=== PATIENT | female | born 1970 | race Caucasian/White ===

== ENCOUNTER → 2021-06-27 09:12 | Outpatient (CLI) | payer OTHER, SELFPAY ==
--- NOTE | ~2021-06-27 | XR_ITS ---
EXAMINATION: XR hip LT min 2V INDICATION: Left side pain TECHNIQUE: Two views of the left hip are obtained. COMPARISON: None available FINDINGS: Bone alignment is normal. There is no fracture. Phleboliths are seen in the left pelvis. An IUD is noted. IMPRESSION: 1. No acute osseous abnormality. Reviewed, dictated and finalized at location A. NSTRUCTIVE DENTIST
--- NOTE | ~2021-06-27 | XR_ITS ---
EXAMINATION: XR lumbar spine min 4V DATE: 06/27/2021 09:34 INDICATION: Lumbar radiculopathy TECHNIQUE: Anteroposterior, lateral, and bilateral oblique views of the lumbar spine, and cone-down l ateral view of the lumbosacral junction were obtained. COMPARISON: None. FINDINGS: There is no fracture, dislocation, or subluxation. There is mild loss of intervertebral dis c space height at L3-4. The vertebral body heights are maintained. Small degenerative osteophytes pro ject from the anterior endplates of multiple vertebral bodies. There is mild facet osteoarthritis of the lower lumbar spine. The bowel gas pattern is normal. Surgical clips in the right upper quadrant a re likely from prior cholecystectomy. An IUD is noted. IMPRESSION: 1. Mild lumbar spondylosis without acute findings. Reviewed, dictated and finalized at location A. 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
== END ==
PROVIDERS: PCP Family Medicine; Visit Provider Physician Assistant
DX: M54.16 Radiculopathy, lumbar region (principal); M43.06 Spondylolysis, lumbar region
CPT/HCPCS: 72110; 73502

== ENCOUNTER → 2021-07-04 07:02 | Outpatient (CLI) | payer OTHER, SELFPAY ==
--- NOTE | ~2021-07-04 | MM_ITS ---
EXAMINATION: [place] [facility] [place] HISTORY: Screening mammogram TECHNIQUE: Craniocaudal and mediolateral oblique 3-D tomosynthesis images were obtained and synthetic 2-D images were generated. CAD analysis was submitted and interpreted. COMPARISON: 02/23/2019, 09/04/2015, 02/01/2014, 01/26/2014 BREAST PARENCHYMAL COMPOSITION: There are scattered areas of fibroglandular density. FINDINGS: There is no evidence of suspicious mass, calcification, or architectural distortion to sugg est malignancy in either breast. There has been no suspicious interval change. IMPRESSION: 1. No mammographic evidence of malignancy. 2. Recommend routine screening mammography in one year. BI-RADS Category 1: Negative Reviewed, dictated and finalized at location A. OOD MANAGER
== END ==
PROVIDERS: Visit Provider Nurse Practitioner
DX: Z12.31 Encounter for screening mammogram for malignant neoplasm of breast (principal)
CPT/HCPCS: 77063; 77067

== ENCOUNTER → 2022-10-14 08:18 | Outpatient (CLI) | payer OTHER, SELFPAY ==
--- NOTE | ~2022-10-14 | MR_ITS ---
EXAMINATION: MR brain/brain stem wo con DATE: 10/14/2022 09:09 INDICATION: Facial weakness. TECHNIQUE: Magnetic resonance imaging (MRI) of the brain and brainstem was performed without intraven ous contrast. COMPARISON: None. FINDINGS: There is no intracranial hemorrhage, acute infarction, or abnormal intracranial mass lesion . The ventricles are normal in size. The paranasal sinuses are clear. The orbits are normal. The mast oid air cells are normal. IMPRESSION: 1. Normal brain. Reviewed, dictated and finalized at location A. IMPRESSION: 1. Normal brain.
== END ==
PROVIDERS: PCP Family Medicine; Visit Provider Physician Assistant
DX: R29.810 Facial weakness (principal)
CPT/HCPCS: 70551

== ENCOUNTER → 2022-12-30 07:52 | Outpatient (CLI) | payer OTHER, SELFPAY ==
--- NOTE | ~2022-12-30 | MM_ITS ---
EXAMINATION: MM screening [facility] w macy HISTORY: Screening mammogram TECHNIQUE: Craniocaudal and mediolateral oblique 3-D tomosynthesis images were obtained and synthetic 2-D images were generated. CAD analysis was submitted and interpreted. COMPARISON: 07/04/2021, 02/23/2018, 09/04/2015 bilateral screening mammogram examinations BREAST PARENCHYMAL COMPOSITION: There are scattered areas of fibroglandular density. FINDINGS: There is no evidence of suspicious mass, calcification, or architectural distortion to sugg est malignancy in either breast. There has been no suspicious interval change. IMPRESSION: 1. No mammographic evidence of malignancy. 2. Recommend routine screening mammography in one year. BI-RADS Category 1: Negative Reviewed, dictated and finalized at location A.
== END ==
PROVIDERS: PCP Nurse Practitioner; Visit Provider Nurse Practitioner
DX: Z12.31 Encounter for screening mammogram for malignant neoplasm of breast (principal)
CPT/HCPCS: 77063; 77067

== ENCOUNTER 2023-01-08 16:13 | Outpatient (CLI) | payer OTHER, SELFPAY ==
--- NOTE | ~2023-01-08 | US_ITS ---
Procedure: Duplex Doppler examination of the bilateral carotids. Indication: Lower extremity paresthesias Technique: Real time, color-flow and pulse wave Doppler examination of the bilateral carotids was performed. Findings: Marroquin scale ultrasonography of the right neck demonstrated no significant plaque. There was demonstrat ion of normal color-flow and Doppler waveforms within the right common, internal and external carotid arteries. The peak systolic velocities in the right common, internal and external carotid arteries w ere demonstrated to be 89 cm/sec, 106 cm/sec and 112 cm/sec respectively. The right ICA/CCA ratio was 1.3.The proximal right internal carotid artery demonstrates 0% stenosis relative to the normal dista l artery lumen diameter. Marroquin scale sonography of the left neck demonstrated no significant plaque. There was demonstration of normal color-flow and wave forms within the left common, internal and external carotid arteries. The peak systolic velocities in the left common, internal and external carotid arteries were demonstrate d to be 77cm/sec, 99 cm/sec and 62 cm/sec respectively. The left ICA/CCA ratio was 1.6. The proximal left internal carotid artery demonstrates 0% stenosis relative to the normal distal artery lumen diam eter. There was antegrade flow demonstrated in the bilateral vertebral arteries. Impression: No hemodynamically significant stenosis of the bilateral internal carotid arteries. Antegrade flow in the bilateral vertebral arteries. Note: The methodology used is an indirect measurement validated against a direct method (such as the NASCET criteria) that compares diameters at the stenosis to the distal ICA. Reviewed, dictated and finalized at [facility]. Impression: No hemodynamically significant stenosis of the bilateral internal carotid arter ies. Antegrade flow in the bilateral vertebral arteries. Note: The methodology used is an indirect measurement validated against a direct meth od (such as the NASCET criteria) that compares diameters at the stenosis to the distal ICA.
== END 2023-01-08 16:14 ==
PROVIDERS: PCP Family Medicine; Visit Provider Physician Assistant
DX: R29.90 Unspecified symptoms and signs involving the nervous system (principal)
CPT/HCPCS: 93880

== ENCOUNTER 2023-09-05 08:29 | Outpatient (CLI) | payer OTHER, SELFPAY ==
--- NOTE | 2023-09-05 11:30 | NEURO_ITS ---
Impression: # Complains of left anterolateral thigh numbness. # Normal sensory and motor Nerve Conduction Study. # Normal needle/EMG exam. # Clinical correlation recommended. Nerve Conduction Studies Anti Sensory Summary Table Stim Site NR Peak (ms) P-T Amp (?V) Site1 Site2 Delta-P (ms) Dist (cm) Deejay (m/s) Left Saphenous Anti Sensory (Ant Med Mall) 14cm 3.3 24.6 14cm Ant Med Mall 3.3 0.0 Left Sup Fibular Anti Sensory (Ant Lat Mall) 14 cm 3.3 10.6 14 cm Ant Lat Mall 3.3 16.0 48 Left Sural Anti Sensory (Lat Mall) Calf 3.2 9.8 Calf Lat Mall 3.2 16.0 50 Motor Summary Table Stim Site NR Onset (ms) O-P Amp (mV) Site1 Site2 Delta-0 (ms) Dist (cm) Deejay (m/s) Left Peroneal Motor (Vastus Med) Ankle 3.8 1.4 Popit Ankle 8.6 44.0 51 Popit 12.4 1.6 Left Tibial Motor (Abd Mary Brev) Ankle 4.0 3.1 Knee Ankle 8.7 44.0 51 Knee 12.7 1.3 F Wave Studies NR F-Lat (ms) L-R F-Lat (ms) Left Peroneal (Mrkrs) (EDB) 52.03 Left Tibial (Mrkrs) (Abd Hallucis) 53.09 EMG Side Muscle Nerve Root Ins Act Fibs Amp Dur Recrt Comment Left AntTibialis Dp Br Fibular L4-5 Nml Nml Nml Nml Nml Left Gastroc Tibial S1-2 Nml Nml Nml Nml Nml Left Fibularis Long Sup Br Fibular L5-S1 Nml Nml Nml Nml Nml Left Flex Dig Long Tibial L5-S2 Nml Nml Nml Nml Nml Left Ext Dig Brev Dp Br Fibular L5, S1 Nml Nml Nml Nml Nml MTDD
== END 2023-09-05 08:30 | disposition home or self-care (01) ==
PROVIDERS: PCP Family Medicine; Visit Provider Physician Assistant
DX: R20.2 Paresthesia of skin (principal)
CPT/HCPCS: 95886; 95909

== ENCOUNTER 2023-09-25 07:54 | Outpatient (CLI) | payer OTHER, SELFPAY ==
--- NOTE | ~2023-09-25 | MR_ITS ---
EXAMINATION: MR lumbar spine wo con DATE: 09/25/2023 08:23 INDICATION: Neuralgia Sciatica of the left lower limb TECHNIQUE: Magnetic resonance imaging (MRI) of the lumbar spine was performed without intravenous con trast. Sequences included sagittal T2-weighted FSE, sagittal T2-weighted FS FSE, sagittal T1-weighted FSE, and axial T2-weighted FSE. COMPARISON: None FINDINGS: Alignment is normal. Vertebral body heights are normal. Normal marrow signal. Mild disc height loss at L2-L3, L3-L4 and L4-L5. The conus medullaris terminates at T12-L1. There is normal signal in the c audal spinal cord. Paravertebral soft tissues are unremarkable. The following disc levels are specifi alva discussed: T12-L1: The disc does not extend beyond the endplate margin. There is mild bilateral facet joint oste oarthritis. There is no neural foraminal stenosis. There is no central canal stenosis. L1-L2: The disc does not extend beyond the endplate margin. There is mild left and moderate right fac et joint osteoarthritis. There is no neural foraminal stenosis. There is no central canal stenosis. L2-L3: Disc is mildly bulging. There is mild to moderate left and moderate right facet joint osteoart hritis. There is mild bilateral neural foraminal stenosis. There is mild central canal stenosis. L3-L4: Disc is bulging. There is moderate bilateral facet joint osteoarthritis. There is mild left an d mild to moderate right neural foraminal stenosis. There is mild central canal stenosis. L4-L5: Disc is bulging. There is moderate bilateral facet joint osteoarthritis. There is moderate jim ateral, right greater than left neural foraminal stenosis. There is mild central canal stenosis. L5-S1: The disc does not extend beyond the endplate margin. There is moderate bilateral facet joint o steoarthritis. There is mild bilateral neural foraminal stenosis. There is no central canal stenosis. IMPRESSION: 1. Mild lumbar spondylosis. Reviewed, dictated and finalized at location L. IMPRESSION: 1. Mild lumbar spondylosis.
== END 2023-09-25 07:55 ==
LOC: MICIMG 07:56
PROVIDERS: PCP Psychiatry & Neurology Neurology; Visit Provider Psychiatry & Neurology Neurology
DX: M54.50 Low back pain, unspecified (principal); G57.12 Meralgia paresthetica, left lower limb; M43.06 Spondylolysis, lumbar region
CPT/HCPCS: 72148

== ENCOUNTER 2024-06-23 13:29 | Outpatient (CLI) | payer OTHER, SELFPAY ==
--- NOTE | ~2024-06-23 | MM_ITS ---
EXAMINATION: MM screening [facility] w macy HISTORY: Screening TECHNIQUE: Craniocaudal and mediolateral oblique 3-D tomosynthesis images were obtained and synthetic 2-D images were generated. CAD analysis was submitted and interpreted. COMPARISON: Comparison to multiple prior studies sequentially, with oldest reviewed study dated 02/23. BREAST PARENCHYMAL COMPOSITION: Not Dense: The breasts are almost entirely fatty. FINDINGS: There is no evidence of suspicious mass, calcification, or architectural distortion to sugg est malignancy in either breast. There has been no suspicious interval change. IMPRESSION: 1. No mammographic evidence of malignancy. 2. Recommend routine screening mammography in one year. BI-RADS Category 1: Negative Reviewed, dictated and finalized at location B. T YARNER
== END 2024-06-23 13:30 | disposition home or self-care (01) ==
LOC: MICIMG 13:30
PROVIDERS: PCP Family Medicine; Visit Provider Nurse Practitioner
DX: Z12.31 Encounter for screening mammogram for malignant neoplasm of breast (principal)
CPT/HCPCS: 77063; 77067

== ENCOUNTER 2024-08-11 07:00 | Outpatient (CLI) | payer OTHER, SELFPAY ==
--- NOTE | ~2024-08-11 | MR_ITS ---
MRI of the left knee Clinical history: Pain Technique: Coronal proton density and proton density-weighted images, sagittal proton-density and T2 fat-sat images, and axial proton-density fat-saturated images were acquired. Findings: Anterior and posterior cruciate ligaments are intact. Medial collateral ligament and the la teral collateral ligament complex are intact. There is probable chronic signal changes at the proxima l fibular collateral ligament. Popliteus tendon is intact. There is a radial tear at the posterior to the medial meniscus. No lateral meniscal tear seen. 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 There is diffuse mild to moderate chondral thinning along the medial femoral condyle. The re is mild chondral thinning and lateral compartment. Extensor mechanism is intact. No significant joint effusion or Edwards's cyst. Impression: Radial tear at the posterior root of the medial meniscus. Chondromalacia, as detailed above. Reviewed, dictated and finalized at [facility]. [employer] COUNSEL Impression: Radial tear at the posterior root of the medial meniscus. Chondromalacia, as detailed above.
== END 2024-08-11 07:01 | disposition home or self-care (01) ==
PROVIDERS: PCP Family Medicine; Visit Provider Nurse Practitioner Family
DX: S83.242A Other tear of medial meniscus, current injury, left knee, initial encounter (principal); M94.262 Chondromalacia, left knee; X58.XXXA Exposure to other specified factors, initial encounter
CPT/HCPCS: 73721

== ENCOUNTER 2024-08-23 07:53 | Outpatient (CLI) | payer OTHER, SELFPAY ==
--- OUTSIDE RECORDS SUMMARY | 2024-08-23 07:55 | XMS_ITS | Clinical Summary ---
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 Name Role Phone Unavailable Primary Care Provider Unavailabl e Social History Tobacco Use Types Packs/Day Years Used Date Smoking Tobacco: Never Assessed Comments Unknown Sex and Gender Information Value Date Recorded Sex Assigned at Not on file Legal Sex Female 5:56 PM CDT Gender Identity Not on file Sexual Orientation Not on file Plan of Treatment Health Maintenance Due Date Last Done Comments Cervical Cancer Screening Pa p Smear (Age 30 to 64) Every 3 Years 1972 Colorectal Cancer Screening Colonoscopy (10 Years) 1972 Annual Physical 10/09/1975 Hepatitis C 1990 DTaP, Tdap and Td Vaccines ( 1 - Tdap) 10/09/1991 Hepatitis B Vaccines (1 of 3 - 19+ 3-dose series) 10/09/1991 Cervical Cancer Screening Pa p with HPV Testing (Age 30 to 64) Every 5 Years 2002 Cervical Cancer Screening with HPV 2002 Mammogram Screening 2012 Zoster Vaccines (1 of 2) 2022 COVID-19 Vaccine ( - 2023-2 5 season) 2024 Influenza Adult (#1) 2024 Meningococcal B Vaccine Aged Out No l onger eligible based on patient's age to complete this topic Meningococcal Vaccine Aged Out No deepali tawana eligible based on patient's age to complete this topic Pneumococcal Vaccine: Pediat rics (0 to 5 Years) and At-Risk Patients (6 to 64 Years) Aged Out No longer eligible b ased on patient's age to complete this topic RSV Immunizations Under 20 Months Aged Out No longer eligible based on patient's age to complete this topic
--- OUTSIDE RECORDS SUMMARY | 2024-08-23 07:55 | XMS_ITS | Continuity of Care Document ---
Author Organization [facility] Address [address] [place] [address] [address] [place] [address] Phone Care Team Providers Care Director Of Property Management Name Role Phone Emi Crowder Unavailable Unavailable Procedures Procedure Date PT RE-EVALUATION THERAPEUTIC EXERCISES NEUROMUSCULAR RE-ED MANUAL THERAPY FUNC ACTIVITY ULTRASOUND THERAPY HOT/COLD PACK ELECTRIC STIMULATION UNATT THERAPEUTIC EXERCISES NEUROMUSCULAR RE-ED MANUAL THERAPY FUNC ACTIVITY ULTRASOUND THERAPY HOT/COLD PACK ELECTRIC STIMULATION UNATT THERAPEUTIC EXERCISES NEUROMUSCULAR RE-ED MANUAL THERAPY FUNC ACTIVITY ULTRASOUND THERAPY HOT/COLD PACK ELECTRIC STIMULATION UNATT THERAPEUTIC EXERCISES NEUROMUSCULAR RE-ED MANUAL THERAPY FUNC ACTIVITY ULTRASOUND THERAPY HOT/COLD PACK ELECTRIC STIMULATION UNATT THERAPEUTIC EXERCISES NEUROMUSCULAR RE-ED MANUAL THERAPY FUNC ACTIVITY ULTRASOUND THERAPY HOT/COLD PACK ELECTRIC STIMULATION UNATT THERAPEUTIC EXERCISES NEUROMUSCULAR RE-ED MANUAL THERAPY FUNC ACTIVITY ULTRASOUND THERAPY HOT/COLD PACK ELECTRIC STIMULATION UNATT THERAPEUTIC EXERCISES NEUROMUSCULAR RE-ED MANUAL THERAPY FUNC ACTIVITY ULTRASOUND THERAPY HOT/COLD PACK ELECTRIC STIMULATION UNATT THERAPEUTIC EXERCISES NEUROMUSCULAR RE-ED MANUAL THERAPY FUNC ACTIVITY ULTRASOUND THERAPY HOT/COLD PACK ELECTRIC STIMULATION UNATT PT EVALUATION THERAPEUTIC EXERCISES MANUAL THERAPY FUNC ACTIVITY ULTRASOUND THERAPY HOT/COLD PACK ELECTRIC STIMULATION UNATT Advance Directives Directive Yes / No Effective Date File Name No Information Encounters Encounter Description Practice Location Reason(s) For Visit Diagnoses Date Provider Providers Copied on Encounter [facility] [employer] [address], [place], [id number], tel:[phone] [facility] No Information Oct-0 2201 4 Tafyelitza Middleton. [address], [facility], . tel:[phone] Referring Provider: Sav[address], [place], [address]. tel:[phone] 6802 [facility] [address] [employer] [address], [place], [id number], tel:[phone] [facility] No Information Sep-2 3-201 4 Tafyelitza MartiEmi. [address] [facility], [facility] [address], [place], [facility], [place]. tel:[phone] Referring Provider: Savan[address], [place], [address]. tel:[phone] 3182 [facility] [address] [employer] [address], [place], [id number], tel:[phone] [facility] No Information Sep-1 8-201 4 Taff Emi. [address] [place] [address], [address], [place], [place], [facility], [place]. tel:[phone] Referring Provider: Savan[address], [place], [address]. tel:[phone] [address] [place] [address], [place], [id number], tel:[phone] [facility] No Information Sep-1 5-201 4 Taff Emi. [address] [place] [address], [address], [place], [place], [facility], [place]. tel: [phone] Referring Provider: Savan[address], [place], [address]. tel:[phone] [address] [place] [address], [id number], [place] tel:[phone] [facility] No Information Sep-1 1 4 Taff Emi. [address] [place] [address], [address], [address], [place]. tel:[phone] Referring Provider: Sav[address], [place], [address]. tel:[phone] [address] [place] [address], [place], [id number], [place] tel:[phone] [facility] No Information Sep-0 8201 4 Taff Emi. [address] [place] [address], [address], [place], [address], [place]. tel:[phone] Referring Provider: Savan[address], [place], [address]. tel:[phone] [address] [place], [place] [address], [place], [place], [id number], [place] tel:[phone] [facility] No Information Sep-0 2-201 4 Taff Emi. [address] [place] [address], [address], [place], [facility], [place]. tel:[phone] Referring Provider: [address], [place], [address]. tel:[phone] [address] [place] [address], [id number], tel:[phone] [facility] No Information Shanice Middleton. [address] [facility], [address], [place], [facility], [place]. tel:[phone] Referring Provider: Sav[address], [place], [address]. tel:[phone] 4476 [facility] [address] [place] [address], [id number], tel:[phone] [facility] Pain in joint involving shoulder region Shanice Middleton. [address] [facility], [address], [address], [place]. tel:[phone] Referring Provider: Sav[address], [place], [address]. tel:[phone] Family History Family Member Type Diagnosis Age At Onset No Information Payers Payer name Insurance type Covered republican ID Authorhalley harvey(s) [facility] Gomez MASON [id number] VL C Y2014 Social History Type Description Quantity Date Captured Comments Sex Female Smoking Status No Information Chief Complaint And Reason For Visit No Information Reason For Referral Reason For Referral No Information History Of Present Illness Encounter Date Complaint History Of Prese nt Illness No Information Functional Status Date Functional Assessmen t No Information Instructions Date Instruction Additional Infor mation No Information Assessments Type Assessment Date No Information Patient Care Teams Name Effective Dates (start - stop) Status Members No Information
--- NOTE | 2024-08-23 08:02 | ECG_ITS ---
Test Date: 2024-08-23 08:14:01 Measurements Intervals [place] Rate: 87 P: 61 MD: 173 QRS: 26 QRSD: 97 T: 34 QT: 359 QTc: 433 Interpretive Statements SINUS RHYTHM POSSIBLE LEFT ATRIAL ENLARGEMENT INFERIOR INFARCT, AGE INDETERMINATE BASELINE WANDER- V4-V6 ABNORMAL ECG No previous ECG available for comparison Electronically Signed On 08-23-2024 10:42:40 DISTRIBUTION TECH by Placido Fan D.O.
== END 2024-08-23 07:54 | disposition home or self-care (01) ==
PROVIDERS: PCP Family Medicine; Visit Provider Family Medicine
DX: I10 Essential (primary) hypertension (principal); R94.31 Abnormal electrocardiogram [ECG] [EKG]
CPT/HCPCS: 93005

== ENCOUNTER 2024-08-29 15:35 | Outpatient (CLI) | payer OTHER, SELFPAY ==
--- OUTSIDE RECORDS SUMMARY | 2024-08-29 15:38 | XMS_ITS | Continuity of Care Document ---
Author Organization [facility] Address [address] [place] [address] [address] [place] [address] Phone Care Team Providers Care Log Check Scaler Name Role Phone Emi Crowder Unavailable Unavailable [...] Diagnoses Date Provider Providers Copied on Encounter [facility] [employer] [address], [place], [id number], tel:[phone] [facility] No Information Oct-0 2201 4 Tafyelitza Middleton. [address], [facility], . tel:[phone] Referring Provider: Savanah [address]breu [address], [place], [address]. tel:[phone] [facility] [address] [employer] [address], [place], [id number], tel:[phone] [facility] No Information Sep-2 3-201 4 Tafyelitza MartiEmi. [address] [facility], [facility] [address], [place], [facility], [place]. tel:[phone] Referring Provider: Savanah [address]breu [address], [place], [address]. tel:[phone] [facility] [address] [employer] [address], [place], [id number], tel:[phone] [facility] No Information Sep-1 8-201 4 Taff Emi. [address] [place] [address], [address], [place], [place], [facility], [place]. tel:[phone] Referring Provider: Savanah [address]breu [address], [place], [address]. tel:[phone] [address] [place] [address], [place], [id number], tel:[phone] [facility] No Information Sep-1 5-201 4 Taff Emi. [address] [place] [address], [address], [place], [place], [facility], [place]. tel:[phone] Referring Provider: Savanah Abreu [address], [place], [address]. tel:[phone] [address] [place] [address], [id number], [place] tel:[phone] [facility] No Information Sep-1 1 4 Taff Emi. [address] [place] [address], [address], [place], [address], [place]. tel:[phone] Referring Provider: Savanah Abre[address], [place], [address]. tel:[phone] [address] [place] [address], [place], [id number], [place] tel:[phone] [facility] No Information Sep-0 8201 4 Taff Emi. [address] [place] [address], [address], [place], [address], [place]. tel: [phone] Referring Provider: Savanah Abreu [address], [place], [address]. tel:[phone] [address] [place], [place] [address], [place], [place], [id number], [place] tel:[phone] [facility] No Information Sep-0 2-201 4 Taff Emi. [address] [place] [address], [address], [place], [facility], [place]. tel:[phone] Referring Provider: Savanah Abre[address], [place], [address]. tel:[phone] [place] [address], [id number], tel:[phone] [facility] No Information Shanice Middleton. [address] [facility], [address], [place], [facility], [place]. tel:[phone] Referring Provider: Savanah [address]bre[address], [place], [address]. tel:[phone] [facility] [address] [place] [address], [id number], tel:[phone] [facility] Pain in joint involving shoulder region Shanice Middleton. [address] [facility], [address], [place], [address], [place]. tel:[phone] Referring Provider: Savan[address]bre[address], [place], [address]. tel:[phone] Family History Family Member Type Diagnosis Age At Onset No Information Payers Payer name Insurance type Covered libertarian ID Authorhalley harvey(s) [facility] Gomez MASON [id number] VL C Y2014 Social History Type Description [...]
--- OUTSIDE RECORDS SUMMARY | 2024-08-29 15:38 | XMS_ITS | Clinical Summary ---
Author Organization [facility] Address [address] [place] [address] Care Team Providers Care Communication Electronic Technician Name Role Phone Unavailable Primary Care Provider [...]
--- NOTE | 2024-08-29 16:00 | ECHO_ITS ---
Patient Info Name: Barbra Menjivar Age: 53 years : 1970 Gender: Female Ht: 66 in Wt: 240 lbs BSA: 2.30 m2 HR: 77 bpm BP: 161 / 106 mmHg Heart Rhythm: Sinus Rhythm Technical Quality: Good Exam Date: 08/29/2024 4:08 PM Exam Location: Echo Lab Patient Status: Outpatient Admit Date: 08/29/2024 Staff Ordering Physician: Alexia Lay MD Metal Spinner: Lady Malik RDCS Attending Provider: Alexia Lay MD Referring Physician: Alireza CONTE; Exam Type: CA echo doppler color flow Study Info Indications - Pre-op R94.31 - Abnormal electrocardiogram ECG EKG Complete two-dimensional, color flow and Doppler transthoracic echocardiogram is performed. Summary 1. Complete two-dimensional, color flow and Doppler transthoracic echocardiogram is performed. 2. Left ventricular chamber dimension is normal. 3. Left ventricular systolic function is normal, estimated at 60-65%. 4. The left ventricular diastolic function is normal. 5. E/e' 7 is not elevated. 6. Left atrial chamber dimension is mildly enlarged. 7. There is trace mitral valve regurgitation. 8. There is trace tricuspid valve regurgitation. 9. No pulmonary hypertension, estimated pulmonary arterial systolic pressure is 28 mmHg. Left Ventricle E/e' 7 is not elevated. Left ventricular chamber dimension is normal. Left ventricular systolic function is normal, estimated at 60-65%. The left ventricular diastolic function is normal. Right Ventricle Right ventricular systolic function is normal and with normal TAPSE 2.3 cm. Right ventricular chamber dimension is normal. Left Atria Left atrial chamber dimension is mildly enlarged. Right Atria Right atrial chamber dimension is normal. Aortic Valve The aortic valve is trileaflet. There is no aortic valve stenosis. There is no aortic valve regurgitation. Pulmonic Valve There is no pulmonic regurgitation. Mitral Valve There is no mitral valve stenosis. There is trace mitral valve regurgitation. Tricuspid Valve There is trace tricuspid valve regurgitation. No pulmonary hypertension, estimated pulmonary arterial systolic pressure is 28 mmHg. Pericardium/Pleural There is no pericardial effusion. Inferior Vena Cava Normal inferior vena cava with >50% collapse upon inspiration consistent with normal right atrial pressure, 5 mmHg. Aorta The aortic root size at the sinus of Valsalva is normal. Left Ventricular Outflow Tract Name Value Normal LVOT 2D LVOT Diameter 2.0 cm LVOT Doppler LVOT Peak Gradient 4 mmHg LVOT Mean Gradient 2 mmHg LVOT VTI 20 cm LVOT VTI/AV VTI Ratio 0.6 LVOT Stroke Volume 63 ml LVOT CO 5.1 l/min LVOT CI 2.2 l/min/m2 Pulmonic Valve Name Value Normal RVOT Doppler RVOT Peak Gradient 3 mmHg PV Doppler PV Peak Gradient 6 mmHg Mitral Valve Name Value Normal MV Doppler MV Decel [place] 781 cm/s2 MV PHT 30 ms MV Area (PHT) 7.2 cm2 4.0-5.0 MV Diastolic Function MV E Peak Velocity 82 cm/s MV A Peak Velocity 75 cm/s MV E/A 1.1 MV Decel Time 105 ms MV Annular TDI MV E/e' (Septal) 8.6 <=8.0 MV E/e' (Lateral) 7.0 <=8.0 MV E/e' (Average) 7.8 Tricuspid Valve Name Value Normal TV Regurgitation Doppler TR Peak Velocity 241 cm/s TR Peak Gradient 23 mmHg Estimated PAP/RSVP RA Pressure 5 mmHg <=5 PA Systolic Pressure 28 mmHg <36 RV Systolic Pressure 28 mmHg <36 Aorta Name Value Normal Ascending Aorta Ao Root Diameter (MM) 3.1 cm Ao Root Diam Index (MM) 1.4 cm/m2 Aortic Valve Name Value Normal AV Doppler AV Peak Velocity 154 cm/s AV Peak Gradient 10 mmHg AV Mean Gradient 5 mmHg AV VTI 32 cm AV Area (Cont Eq VTI) 2.0 cm2 >=3.0 AV Area (Cont Eq Deejay) 2.1 cm2 AV Regurgitation 2D LVOT Area 3.1 cm2 Ventricles Name Value Normal LV Dimensions 2D/MM IVS Diastolic Thickness (2D) 0.8 cm 0.6-1.0 LVID Diastole (2D) 5.0 cm 3.8-5.2 LVIW Diastolic Thickness (2D) 0.8 cm 0.6-0.9 LVID Systole (2D) 2.9 cm 2.2-3.5 LVOT Diameter 2.0 cm LV Mass (2D Cubed) 134.53 g 67.00-162.00 LV Mass Index (2D Cubed) 58 g/m2 43-95 Relative Wall Thickness (2D) 0.33 LV Fractional Shortening/Ejection Fraction 2D/MM LV Fractional Shortening (2D) 42 % 27-45 LV EF (2D Teichberlin) 73 % 54-74 LV Diastolic Volume (4C MOD) 73 ml LV EF (4C MOD) 61 % LV Diastolic Volume (2C MOD) 78 ml LV EF (2C MOD) 62 % LV Diastolic Volume (BP MOD) 75 ml 46-106 LV Diastolic Volume Index (BP MOD) 33 ml/m2 29-61 LV Systolic Volume (BP MOD) 29 ml 14-42 LV Systolic Volume Index (BP MOD) 13 ml/m2 8-24 LV EF (BP MOD) 61 % 54-74 LV Diastolic Length (4C) 8.4 cm LV Systolic Length (4C) 6.7 cm LV Stroke Volume (4C MOD) 44 ml Atria Name Value Normal LA Dimensions LA Dimension (MM) 4.0 cm 2.7-3.8 LA Volume (4C A-L) 74 ml LA Volume (BP A-L) 73 ml RA Dimensions RA Area (4C) 21.3 cm2 <=18.0 Report Signatures
== END 2024-08-29 15:36 | disposition home or self-care (01) ==
PROVIDERS: PCP Family Medicine; Visit Provider Family Medicine
DX: R94.31 Abnormal electrocardiogram [ECG] [EKG] (principal)
CPT/HCPCS: 93306

== ENCOUNTER 2024-09-02 00:34 | Day surgery (SDC) | payer OTHER, SELFPAY ==
[2024-08-25 14:36] VITALS: BMI 38.7
--- NOTE | 2024-08-25 15:00 | SUR.PREOP ---
Report to the Outpatient Waiting Room, entrance under the green pavilion located off [facility], at time 1130 on date 09/02/24. Planned Procedure Time: 1330.? Time changes happen often and if your time is changed the preop area will call you the afternoon before. - You and your visitor will be asked to self-screen and do not enter if you have any COVID symptoms. Please call surgeon if you need to reschedule. - A mask is optional within the hospital at this time. Patients may have clear liquids (water, carbonated beverages, clear teas, apple juice) until 3 hours prior to surgery with a maximum of 20 ounces. - No food from midnight until time of surgery and no smoking, or chewing tobacco (or any form of nicotine). No chewing gum, candy or mints. Take only the following medications with a SIP of water on the morning of surgery: METOPROLOL DO NOT STOP ANY OF YOUR OTHER PRESCRIPTION MEDICATIONS PRIOR TO SURGERY EXCEPT THE FOLLOWING Hold all vitamins and supplements for 3 days per anesthesiologist. Medications to discontinue per physician ALL VITAMINS AND SUPPLIMENTS FOR 3 DAYS PRIOR Date to take last dose 08/28/24 Please no make-up, nail sinhala, hairspray, perfume, deodorant, or body powder the day of surgery.? No jewelry (including any body piercings) or valuables the day of surgery, leave them at home.? Please take a shower or bath the night before, or the morning of, surgery with an antibacterial soap.? Wear comfortable, loose fitting clothing.? Children are encouraged to wear pajamas. - Jewelry must be removed prior to entering the operating room.? Rings and piercings that are not removed may be cut off. - The hospital will not accept responsibility for valuables.? - Please leave all valuables, including medications, at home the day of surgery. If you are going home after surgery, a licensed grab driver must drive you home.? - NO public transportation without another adult if you receive anesthesia. - We recommend that an adult stay with you for 24 hours following discharge. - We also recommend that you do not drive, make important decision, drink alcoholic beverages, or take any drugs that were not prescribed by your health care provider for at least 24 hours after your discharge time. Follow any additional instructions given to you from your surgeon. Telephone instructions given to and asked if any additional questions and then verbalized understanding. Patient advised to call surgeon office or pre surgery nurse liaison [phone] if any additional questions.
[2024-09-02] VITALS (10 sets, daily range): BP systolic 106–173; BP diastolic 48–92; PULSE 69–83; RESP 12–22; TEMP 36.1–36.9; O2SAT 97–100; BMI 39.2
--- OUTSIDE RECORDS SUMMARY | 2024-09-02 00:37 | XMS_ITS | Continuity of Care Document ---
Author Organization [facility] Address [address] [place] [address] [address] [place] [address] Phone Care Team Providers Care Brick Machine Operator Name Role Phone Emi Crowder Unavailable Unavailable [...] Diagnoses Date Provider Providers Copied on Encounter [facility] [employer] [address], [place], [id number], tel:[phone] [facility] No Information Oct-0 2201 4 Tafyelitza Middleton. [address], [facility], . tel:[phone] Referring Provider: Savanah Abreu Dr, [place], [address]. tel:[phone] [facility] [address] [employer] [address], [place], [id number], tel:[phone] [facility] No Information Sep-2 3-201 4 Tafyelitza MartiEmi. [address] [facility], [facility] [address], [place], [facility], [place]. tel:[phone] Referring Provider: Savanah Abreu [address], [place], [address]. tel:[phone] [facility] [address] [employer] [address], [place], [id number], tel:[phone] [facility] No Information Sep-1 8-201 4 Taff Emi. [address] [place] [address], [address], [place], [place], [facility], [place]. tel:[phone] Referring Provider: Savanah Abreu Dr, [place], [address]. tel:[phone] [address] [place] [address], [place], [id number], tel:[phone] [facility] No Information Sep-1 5-201 4 Taff Emi. [address] [place] [address], [address], [place], [place], [facility], [place]. tel:[phone] Referring Provider: Savanah Abreu Dr, [place], [address]. tel:[phone] [address] [place] [address], [id number], [place] tel:[phone] [facility] No Information Sep-1 1 4 Taff Emi. [address] [place] [address], [address], [address], [place]. tel:[phone] Referring Provider: Savanah [address]bre[address], [place], [address]. tel:[phone] [address] [place] [address], [place], [id number], [place] tel:[phone] [facility] No Information Sep-0 8201 4 Taff Emi. [address] [place] [address], [address], [place], [address], [place]. tel:[phone] Referring Provider: Savanah Abreu [address], [place], [address]. tel:[phone] [address] [place], [place] [address], [place], [place], [id number], [place] tel:[phone] [facility] No Information Sep-0 2-201 4 Taff Emi. [address] [place] [address], [address], [place], [facility], [place]. tel:[phone] Referring Provider: Savanah Abre[address], [place], [address]. tel:[phone] [place] [address], [id number], tel:[phone] [facility] No Information Shanice Middleton. [address] [facility], [address], [place], [facility], [place]. tel:[phone] Referring Provider: Savanah Abre[address], [place], [address]. tel:[phone] [facility] [address] [place] [address], [id number], tel:[phone] [facility] Pain in joint involving shoulder region Shanice Middleton. [address] [facility], [address], [address], [place]. tel:[phone] Referring Provider: Savanah Abre[address], [place], [address]. tel:[phone] Family History Family Member Type Diagnosis Age At Onset No Information Payers Payer name Insurance type Covered republican ID Authorhalley harvey(s) [facility] Gomez MASON [id number] VL C Y2014 Social History Type Description [...]
--- OUTSIDE RECORDS SUMMARY | 2024-09-02 00:37 | XMS_ITS | Clinical Summary ---
Author Organization [facility] Address [address] [place] [address] Care Team Providers Care Timber Mill Worker Name Role Phone Unavailable Primary Care Provider [...]
--- NOTE | 2024-09-02 07:22 | WPDHPUPDATE1 ---
History and Physical Update Update Date/Time: 09/02/24 07:22 History and Physical has been reviewed, including an updated exam of the patient. There are NO changes in the patient's condition. Risks, benefits, and alternatives have been discussed and questions answered. Patient agrees to proceed with procedure.
[2024-09-02] MEDS: LACTATED RINGERS 1,000 ML 30 ML IV CONT ×2 (11:55→16:20)
[2024-09-02] MEDS: CELECOXIB 200 MG CAPSULE PO (11:57)
[2024-09-02] MEDS: ACETAMINOPHEN 500 MG TABLET 1000 MG PO (11:57)
--- NOTE | 2024-09-02 14:03 | P.PNAN_ITS ---
Anes - Initial Pre Proc Eval Procedure: Operation Date: 09/02/24 13:30 Proposed Procedures p Left Knee Arthroscopy - Mitchell Oconnor MD Date/Time: 09/02/24 14:03 Surgeon: Mitchell Oconnor MD Pre Op Diagnosis: left knee meniscal tear Patient Data Age: 53 Gender: F Height: 1.68 m Weight: 110.1 kg Last Vital Signs Temp 97.7 F 09/02/24 11:30 Pulse 83 09/02/24 11:30 Resp 18 09/02/24 11:30 BP 146/88 H 09/02/24 11:30 Pulse Ox 97 09/02/24 11:30 O2 Del Method Room Air 09/02/24 11:30 Allergies Allergy/AdvReac Type Severity Reaction Status Date / Time Penicillins Allergy Unknown Rash Verified 09/02/24 12:07 Sulfa (Sulfonamide Allergy Unknown Rash Verified 09/02/24 12:07 Antibiotics) Home Medications ?Medication ?Instructions ?Recorded ?Confirmed ?Type coenzyme Q10 200 mg/gram oral 200 mg PO DAILY 04/24/22 09/02/24 History powder (H2Q CoQ10) turmeric root extract 500 mg 500 mg PO DAILY 04/24/22 09/02/24 History capsule cholecalciferol (vitamin D3) 125 250 mcg PO DAILY 10/04/22 09/02/24 History mcg (5,000 unit) capsule pantoprazole 40 mg tablet,delayed 40 mg PO QAM #90 tabs 11/19/23 09/02/24 Rx release atorvastatin 10 mg tablet 10 mg PO QHS #90 tabs 02/04/24 09/02/24 Rx metoprolol succinate 50 mg See Rx Instructions .Route 05/08/24 09/02/24 Rx tablet,extended release 24 hr .COMPLEX #90 tabs doxycycline hyclate 20 mg tablet 20 mg PO Q24H ACNE 08/25/24 08/26/24 History omega 8-ztg-dvu-fish oil 1,000 mg 1 cap PO DAILY 08/25/24 09/02/24 History (120 mg-180 mg) capsule (Fish Oil) thiamine HCl (vitamin B1) 50 mg 50 mg PO DAILY 08/25/24 09/02/24 History tablet (Vitamin B-1) chlorhexidine gluconate 4 % 1 applic topical ONCE #237 mL 08/26/24 Rx topical liquid (Hibiclens) semaglutide (weight loss) 0.25 0.25 mg (0.5 mL) subcut WEEKLY #2 09/01/24 Rx mg/0.5 mL subcutaneous pen mL injector (Wegovy) Patient hx anesthesia problems: none Family hx anesthesia problems: none Results Review: All pre-operative results and documents have been reviewed as part of the pre- operative evaluation. [facility] Past Medical History Medical History Degenerative joint disease of knee Medial meniscus tear Left knee injury Left knee pain Lower back pain Meralgia paresthetica of left side Mixed hyperlipidemia GERD (gastroesophageal reflux disease) HTN (hypertension), benign Surgical History Surgical History History of Hx of cholecystectomy H/O breast biopsy Family History Family History Father Diabetes mellitus Social History Social History Smoking status: Never smoker Second hand tobacco smoke exposure: No Alcohol intake: never Substance use: never Substance use type: does not use Do You Feel Safe in your Home?: Yes Lack of Transportation: No Lack of Food: Never True Current Housing: I Have Housing Concerned About Future Housing: No Difficulty Paying Gas/Electric Bills: No Difficulty Paying for Meds: No Currently Unemployed: No Education: Bachelor's Degree Difficulty w/ Childcare or Family Care: No Living arrangements: with family Occupation/Education: occupation Gender identity (if verbalized by the patient): Female Sexual Orientation (if Verbalized by the Patient): Straight or Heterosexual Spiritual care concerns: No Agree to blood products: Yes Anes - Eval Final PreProcedure Day of Procedure 09/02/24 14:03 Patient weight: obese Lungs: normal air movement Airway: Mallampati scale class II Neurological: alert and oriented Last oral intake: >/= 8 hours ASA classification: III Emergent: no Anesthetic plan: proceed Anesthesia type and monitoring: general LMA and standard monitoring Results Review: All pre-operative results and documents have been reviewed as part of the pre- operative evaluation. Hyperlipidemia, HTN (b maame taken this am), pre DM not on meds, BMI 39. Pt had ECHO 08/29/24 w nml LVEF, no , no pulmon HTN. Informed Consent: The patient's anesthetic plan and its attendant risks and benefits were discussed with the patient/family/POA. Questions were solicited and answers provided to the satisfaction of the patient/family/POA.
[2024-09-02] MEDS: ceFAZolin 2 GM/D5W 50 ML 2 GM/50 ML BAG IVPB (14:46)
[2024-09-02] MEDS: BUPivacaine HCL 0.5% 10 ML AMP 30 ML INFILTRATE (15:19)
--- NOTE | 2024-09-02 16:37 | P.OP_ITS ---
Procedure Note - Detailed Date of Procedure 09/02/24 Pre-op Diagnosis left knee meniscal tear Post-op Diagnosis Same (LEFT MEDIAL MENISCUS TEAR) Procedure Performed LEFT KNEE SCOPE Surgeon Mitchell Oconnor MD Anesthesia General Description of Procedure PATIENT WAS TAKEN TO THE OR. THE LEFT LEG WAS PREPPED AND DRAPED STERILE. TROCARS WERE PLACED IN THE USUAL FASHION. CAMERA WAS INTRODUCED. THERE WAS MINIMAL CHONDROMALACIA TO THE PATELLA FEMORAL JOINT. THERE WAS A LOT OF SYNOVITIS IN ALL COMPARTMENTS. THE MEDIAL COMPARTMENT SHOWED MILD CHONDROMALACIA TO THE MEDIAL FEMORAL CONDYLE. A SHAVER WAS USED TO PREFORM A CHONDROPLASTY. THERE WAS A SMALL RADIAL TEAR AT THE MENISCAL ROOT. THE TEAR WAS FULL THICKN ESS. THE TEAR WAS RESECTED WITH A BITER AND A SHAVER DOWN TO A SMOOTH BASE. ABOUT 10% OF THE MENISCUS WAS REMOVED. THE ACL WAS INTACT. THE LATERAL MENISCUS WAS NOT TORN. THE LAT COMPARTMENT HAD MINIMAL CHONDROMALACIA AT THE LATERAL PLATEAU. CHONDROPLASTY WAS PREFORMED. A SYNOVECTOMY WAS PREFORMED WELL. THE PATELLO FEMORAL JOINT UNDERWENT MINIMAL CHONDROPLASTY. SYNOVECTOMY WAS PREFORMED IN THE SUPERIOR MEDIAL COMPARTMENT. THE WOUNDS WERE APPROXIMATED WITH 4.0 NYLON. STERILE DRESSING WAS APPLIED. PATIENT WAS EXTUBATED. Estimated Blood Loss 5 Complications No immediate complications Condition Stable Disposition PACU
[2024-09-02] MEDS: fentaNYL CITRATE INJ (*CRX) 100 MCG/2 ML VIAL 25 MCG IV PUSH ×3 (16:43→17:12)
[2024-09-02] MEDS: oxyCODONE HCL (*CRX) 5 MG TAB IR PO (17:45)
== END 2024-09-02 18:38 | disposition home or self-care (01) ==
PROVIDERS: PCP Family Medicine; Visit Provider Orthopaedic Surgery
PROC: (CPT 29870; principal; 2024-09-02 13:30)
DX: S83.232A Complex tear of medial meniscus, current injury, left knee, initial encounter (principal); M94.262 Chondromalacia, left knee; M65.862 Other synovitis and tenosynovitis, left lower leg; G89.29 Other chronic pain; E78.2 Mixed hyperlipidemia; K21.9 Gastro-esophageal reflux disease without esophagitis; I10 Essential (primary) hypertension; M17.11 Unilateral primary osteoarthritis, right knee; G57.12 Meralgia paresthetica, left lower limb; E66.9 Obesity, unspecified; Z68.39 Body mass index [BMI] 39.0-39.9, adult; Z79.85 Long-term (current) use of injectable non-insulin antidiabetic drugs; Z98.890 Other specified postprocedural states; Z90.49 Acquired absence of other specified parts of digestive tract; X58.XXXA Exposure to other specified factors, initial encounter
CPT/HCPCS: 29881; 29876; A9270; J0690; J1100; J2003; J2250; J2704; J3010; J7120

== ENCOUNTER 2024-09-11 02:34 | Emergency (ER) | payer OTHER, SELFPAY ==
[2024-09-11] VITALS (19 sets, daily range): BP systolic 126–176; BP diastolic 42–101; PULSE 95–107; RESP 14–23; TEMP 36.9–37.2; O2SAT 96–100
--- OUTSIDE RECORDS SUMMARY | 2024-09-11 02:36 | XMS_ITS | Clinical Summary ---
Author Organization [facility] Address [address] [place] [address] Care Team Providers Care Door Manager Name Role Phone Unavailable Primary Care Provider [...]
--- OUTSIDE RECORDS SUMMARY | 2024-09-11 02:36 | XMS_ITS | Continuity of Care Document ---
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 [address], [facility], . tel:[phone] Referring Provider: Savanah [address]breu [address], [place], [address]. tel:[phone] [facility] [address] [employer] [address], [place], [id number], tel:[phone] [facility] No Information Sep-2 3-201 4 Tafyelitza MartiEmi. [address] [facility], [facility] [address], [place], [facility], [place]. tel:[phone] Referring Provider: Savanah [address]bre[address], [place], [address]. tel:[phone] [facility] [address] [employer] [address], [place], [id number], tel:[phone] [facility] No Information Sep-1 8-201 4 Taff Emi. [address] [place] [address], [address], [place], [facility], [place]. tel:[phone] Referring Provider: Savanah [address]breu [address], [place], [address]. tel:[phone] [address] [place] [address], [place], [id number], tel:[phone] [facility] No Information Sep-1 5-201 4 Taff Emi. [address] [place] [address], [address], [place], [facility], [place]. tel:[phone] Referring Provider: Savanah [address]breu [address], [place], [address]. tel:[phone] [address] [place] [address], [id number], [place] tel:[phone] [facility] No Information Sep-1 1 4 Taff Emi. [address] [place] [address], [address], [place], [address], [place]. tel:[phone] Referring Provider: Savanah Abreu [address], [place], [address]. tel:[phone] [address] [place] [address], [place], [id number], [place] tel:[phone] [facility] No Information Sep-0 8201 4 Taff Emi. [address] [place] [address], [address], [place], [address], [place]. tel:[phone] Referring Provider: Savanah Abreu [address], [place], [address]. tel:[phone] [address] [place], [place] [address], [place], [place], [id number], [place] tel:[phone] [facility] No Information Sep-0 2-201 4 Taff Emi. [address] [place] [address], [address], [place], [facility], [place]. tel:[phone] Referring Provider: Savanah Abreu Dr, [place], [address]. tel:[phone] [place] [address], [id number], tel:[phone] [facility] No Information Shanice Middleton. [address] [facility], [address], [place], [facility], [place]. tel:[phone] Referring Provider: Savanah [address]bre[address], [place], [address]. tel:[phone] [facility] [address] [place] [address], [id number], tel:[phone] [facility] Pain in joint involving shoulder region Shanice Middleton. [address] [facility], [address], [place], [address], [place]. tel:[phone] Referring Provider: Savanah Abreu [address], [place], [address]. tel:[phone] Family History Family Member Type Diagnosis Age At Onset No Information Payers Payer name Insurance type Covered libertarian ID Authorhalley harvey(s) [facility] Gomez MASON [id number] VL C [id number] Social History Type Description [...]
[2024-09-11] MEDS: SODIUM CHLORIDE 0.9% IV 1,000 ML 999 ML IV CONT ×2 (07:38→09:02)
[2024-09-11] MEDS: FAMOTIDINE 20 MG/2 ML VIAL IV PUSH (07:39)
[2024-09-11 07:51] LABS: Basophils Absolute Auto 0.1 K/mm3 (0.0-0.1); Basophils Percent Auto 0.4 % (0.2-1.2); Eosinophils Percent Auto 0.2 % (0-4.4); Hematocrit 40.1 % (37.0-47.0); Hemoglobin 13.3 g/dL (12.0-15.0); Immature Granulocyte Absolute 0.16 K/mm3 (0.00-0.031); Lymphocytes Percent Auto 9.1 % (18.3-44.2); Mean Corpuscular HGB Conc 33.2 g/dl (32-36); Mean Corpuscular Hemoglobin 29.1 pg (26-34); Mean Corpuscular Volume 87.7 fl (80-100); Mean Platelet Volume 9.6 fl (7.4-10.4); Monocytes Absolute Auto 0.9 K/mm3 (0.1-0.6); Monocytes Percent Auto 5.8 % (2.6-8.5); Neutrophils Absolute Auto 12.9 K/mm3 (1.3-6.7); Neutrophils Percent Auto 83.5 % (45.5-73.1); Platelet Count Result 317 k/mm3 (150-375); Red Blood Count 4.57 M/mm3 (4.2-5.4); Red Cell Distribution Width 12.8 % (11.5-14.5); White Blood Count 15.4 K/mm3 (4.5-10.0)
[2024-09-11 08:02] LABS: Alanine Aminotransferase 36 U/L (6-35); Albumin Level 4.5 g/dL (3.5-5.1); Alkaline Phosphatase 111 U/L (38-126); Anion Gap 11 mmol/L (4-12); Aspartate Amino Transferase 30 U/L (14-36); Bilirubin,Total 0.7 mg/dL (0.2-1.3); Blood Urea Nitrogen 13 mg/dL (7-17); Calcium 9.9 mg/dL (8.4-10.2); Carbon Dioxide 26 mmol/L (22-30); Chloride 104 mmol/L (98-107); Estimated CRCL calculation 127 ml/min; Estimated Glomerular Filt Rate > 60; Glucose 125 mg/dL (65-110); Lipase 75 U/L (23-300); Potassium 4.3 mmol/L (3.4-5.0); Sodium 141 mmol/L (137-145)
[2024-09-11 08:20] LABS: Troponin I < 0.012 ng/mL (0.000-0.034)
[2024-09-11 08:27] LABS: Influenza A QL RT-PCR Negative (Negative); Influenza B QL RT-PCR Negative (Negative); RSV RNA, RT-PCR Negative (Negative); SARS-CoV-2 RNA PCR Negative (Negative)
[2024-09-11 08:50] LABS: BEDSIDEPREGUCG Negative (Negative)
--- NOTE | 2024-09-11 09:01 | ED.GENADULT ---
HPI - General Adult General Chief complaint: Chest Pain Stated complaint: chill, reflux Time Seen by Provider: 09/11/24 05:14 History of Present Illness HPI narrative: This is a 53-year-old female presenting on pod 9 from a left arthroscopic meniscus repair performed by Dr. Oconnor presenting with difficulty breathing. Patient says that overnight she woke up gasping for air felt like she could not catch her breath. This was associated with substernal chest pain radiating to her back, fevers and chills. She denies nausea vomiting diarrhea. Patient has a history of reflux and says this feels similar. No lower extremity edema. No swelling or increased pain to the knee. Related Data Home Medications ?Medication ?Instructions ?Recorded ?Confirmed ?Last Taken ?Type coenzyme Q10 200 mg/gram oral 200 mg PO DAILY 04/24/22 09/02/24 08/28/24 History powder (H2Q CoQ10) turmeric root extract 500 mg 500 mg PO DAILY 04/24/22 09/02/24 08/28/24 History capsule cholecalciferol (vitamin D3) 125 250 mcg PO DAILY 10/04/22 09/02/24 08/28/24 History mcg (5,000 unit) capsule doxycycline hyclate 20 mg tablet 20 mg PO Q24H ACNE 08/25/24 08/26/24 08/25/24 History omega 1-oyl-lfu-fish oil 1,000 mg 1 cap PO DAILY 08/25/24 09/02/24 08/28/24 History (120 mg-180 mg) capsule (Fish Oil) thiamine HCl (vitamin B1) 50 mg 50 mg PO DAILY 08/25/24 09/02/24 08/28/24 History tablet (Vitamin B-1) Allergies Allergy/AdvReac Type Severity Reaction Status Date / Time Penicillins Allergy Unknown Rash Verified 09/11/24 07:26 Sulfa (Sulfonamide Allergy Unknown Rash Verified 09/11/24 07:26 Antibiotics) [facility] Past Medical History Medical History Degenerative joint disease of knee Medial meniscus tear Left knee injury Left knee pain Lower back pain Meralgia paresthetica of left side Mixed hyperlipidemia GERD (gastroesophageal reflux disease) HTN (hypertension), benign Surgical History Surgical History History of Hx of cholecystectomy H/O breast biopsy Family History Family History Father Diabetes mellitus Social History Social History Smoking status: Never smoker Second hand tobacco smoke exposure: No Alcohol intake: never Substance use: never Substance use type: does not use Do You Feel Safe in your Home?: Yes Lack of Transportation: No Lack of Food: Never True Current Housing: I Have Housing Concerned About Future Housing: No Difficulty Paying Gas/Electric Bills: No Difficulty Paying for Meds: No Currently Unemployed: No Education: Bachelor's Degree Difficulty w/ Childcare or Family Care: No Living arrangements: with family Occupation/Education: occupation Gender identity (if verbalized by the patient): Female Sexual Orientation (if Verbalized by the Patient): Straight or Heterosexual Spiritual care concerns: No Agree to blood products: Yes Exam Narrative: APPEARANCE: Anxious appearing Head: atraumatic. EYES: EOMI, NOSE: Atraumatic NECK: Trachea midline RESPIRATORY: No increased rate of breathing clear to auscultation no oxygen requirements CARDIOVASCULAR: Slightly tachycardic no peripheral edema ABDOMINAL: Non-distended MUSCULOSKELETAl: Focal exam of the left knee showed well-healed arthroscopic incisions. No cellulitic changes warmth or redness. NEURO: Alert. Moving 4/4 extremities SKIN:: Warm, dry. Normal color PSYCHIATRIC: Normal affect Course Vital Signs Vital signs: Vital Signs Temperature 98.4 F 09/11/24 02:37 Pulse Rate 99 09/11/24 02:37 Respiratory Rate 16 09/11/24 02:37 Blood Pressure 165/83 H 09/11/24 02:37 Pulse Oximetry 99 09/11/24 02:37 Oxygen Delivery Room Air 09/11/24 02:37 Temperature 99 F 09/11/24 05:33 Pulse Rate 95 09/11/24 08:16 Respiratory Rate 18 09/11/24 08:16 Blood Pressure 164/73 H 09/11/24 08:16 Pulse Oximetry 98 09/11/24 08:16 Oxygen Delivery Room Air 09/11/24 07:37 Medical Decision Making MDM Narrative Medical decision making narrative: -Course: 53-year-old female presenting for surgery difficulty breathing chest pain. CT PE ordered which was negative for PE but showed a left lower lobe pneumonia. We discussed admission for IV antibiotics versus discharge on p.o. antibiotics. Patient is well appearing overall. Slightly tachycardic although this appears to be more related to anxiety she is acutely anxious in the room. Blood pressure stable. She does not have any oxygen requirements. Patient would prefer to go home. Patient is responsible I think this is reasonable provided that she returns for condition is to worsen. Patient had a listed allergy to penicillin as rash. Patient says this happened when she was a young child she had received penicillin many times before developing a rash once time. PEN-FAST score 0. Given a dose of Augmentin and monitored w/ no reaction. Discharged on Augmentin and doxycycline. Given return precautions -DDX includes but is not limited to: PE, pneumonia, viral illness GERD Vital Signs Vital Signs: Vital Signs Temperature 98.4 F 09/11/24 02:37 Pulse Rate 99 09/11/24 02:37 Respiratory Rate 16 09/11/24 02:37 Blood Pressure 165/83 H 09/11/24 02:37 Pulse Oximetry 99 09/11/24 02:37 Oxygen Delivery Room Air 09/11/24 02:37 Temperature 99 F 09/11/24 05:33 Pulse Rate 95 09/11/24 08:16 Respiratory Rate 18 09/11/24 08:16 Blood Pressure 164/73 H 09/11/24 08:16 Pulse Oximetry 98 09/11/24 08:16 Oxygen Delivery Room Air 09/11/24 07:37 Lab Data 09/11/24 07:44 09/11/24 07:44 Labs: Lab Results 09/11/24 09/11/24 09/11/24 Range/Units 07:44 08:47 08:51 WBC 15.4 H (4.5-10.0) K/mm3 RBC 4.57 (4.2-5.4) M/mm3 Hgb 13.3 (12.0-15.0) g/dL Hct 40.1 (37.0-47.0) % MCV 87.7 (80-100) fl MCH 29.1 (26-34) pg MCHC 33.2 (32-36) g/dl RDW 12.8 (11.5-14.5) % Plt Count 317 (150-375) k/mm3 MPV 9.6 (7.4-10.4) fl Immature Gran % (Auto) 1.0 H (0-0.5) % Neut % (Auto) 83.5 H (45.5-73.1) % Lymph % (Auto) 9.1 L (18.3-44.2) % [place] % (Auto) 5.8 (2.6-8.5) % Eos % (Auto) 0.2 (0-4.4) % Baso % (Auto) 0.4 (0.2-1.2) % Lymph # (Auto) 1.40 (0.9-3.2) K/mm3 [place] # (Auto) 0.9 H (0.1-0.6) K/mm3 Eos # (Auto) 0.0 (0-0.3) K/mm3 Baso # (Auto) 0.1 (0.0-0.1) K/mm3 Abs Immat Gran (auto) 0.16 H (0.00-0.031) K/mm3 Absolute Neuts (auto) 12.9 H (1.3-6.7) K/mm3 Absolute Nucleated RBC 0.000 (0.0-0.012) K/mm3 Nucleated RBC % 0.0 (0.0-0.2) % Sodium 141 (137-145) mmol/L Potassium 4.3 (3.4-5.0) mmol/L Chloride 104 (98-107) mmol/L Carbon Dioxide 26 (22-30) mmol/L Anion Gap 11 (4-12) mmol/L BUN 13 (7-17) mg/dL Creatinine 0.55 L (0.7-1.0) mg/dL Estim Creat Clear Calc 127 ml/min Estimated GFR > 60 (59 - ) Glucose 125 H (65-110) mg/dL Calcium 9.9 (8.4-10.2) mg/dL Total Bilirubin 0.7 (0.2-1.3) mg/dL AST 30 (14-36) U/L ALT 36 H (6-35) U/L Alkaline Phosphatase 111 (38-126) U/L Troponin I < 0.012 (0.000-0.034) ng/mL Total Protein 8.0 (6.3-8.2) g/dL Albumin 4.5 (3.5-5.1) g/dL Lipase 75 (23-300) U/L Urine Color Yellow (Yellow) Urine Appearance Clear (Clear) Urine pH 8.0 (5.0-9.0) Ur Specific [place] 1.029 (1.001-1.035) Urine Protein Negative (Negative) mg/dL Urine Glucose (UA) Negative (Negative) mg/dL Urine Ketones Negative (Negative) mg/dL Ur Blood (Man) Negative (Negative) Urine Nitrate Negative (Negative) Urine Bilirubin Negative (Negative) Urine Urobilinogen 0.2 (<2.0) mg/dL Leukocyte Esterase Rfl Trace H (Negative) SHARDA/UL Urine RBC 0-2 (0-2) /hpf Urine WBC 0-5 (0-3) /hpf Ur Squamous Epith Cells None seen (Few) /hpf Urine Bacteria None seen /hpf Urine Casts 0-2 POC Urine HCG, Qual Negative (Negative) Influenza A (RT-PCR) Negative (Negative) Influenza B (RT-PCR) Negative (Negative) RSV (RT-PCR) Negative (Negative) SARS-CoV-2 RNA (RT-PCR) Negative (Negative) Discharge Plan Discharge Clinical Impression: Pneumonia Patient Disposition: Home, Self-Care Condition: Stable Instructions: Antibiotic Form, Community Acquired Pneumonia (ED) Additional Instructions: You were seen emergency department for pneumonia. Please take the antibiotics as instructed. Please follow-up with your primary care physician in the next 7-10 days. If you feel your condition is getting worse, you develop shortness of breath, worsening chest pain or any new symptoms please return to ED for re-evaluation. Patient Language: Italian Prescriptions: New amoxicillin-pot clavulanate 875-125 mg tablet 1 tablet PO Q12H Qty: 20 0RF doxycycline hyclate 100 mg capsule 100 mg PO BID Qty: 20 0RF No Action H2Q CoQ10 200 mg/gram powder 200 mg PO DAILY turmeric root extract 500 mg capsule 500 mg PO DAILY cholecalciferol (vitamin D3) 125 mcg (5,000 unit) capsule 250 mcg PO DAILY doxycycline hyclate 20 mg tablet 20 mg PO Q24H omega 8-uoe-jdm-fish oil [Fish Oil] 1,000 (120-180) mg capsule 1 cap PO DAILY thiamine HCl (vitamin B1) [Vitamin B-1] 50 mg tablet 50 mg PO DAILY hydrocodone-acetaminophen 5-325 mg tablet 1 tablet PO Q12H PRN (Reason: pain) Qty: 20 0RF pantoprazole 40 mg tablet,delayed release (DR/EC) 40 mg PO QAM Qty: 90 5RF atorvastatin 10 mg tablet 10 mg PO QHS Qty: 90 2RF metoprolol succinate 50 mg tablet extended release 24 hr See Rx Instructions .ROUTE .COMPLEX Qty: 90 3RF Dose Instruction: TAKE 1 TABLET BY MOUTH EVERY DAY Rx Instructions: TAKE 1 TABLET BY MOUTH EVERY DAY chlorhexidine gluconate [Hibiclens] 4 % liquid 1 applic topical ONCE Qty: 237 0RF Rx Instructions: Cleanse operative extremity, in shower, every day for 1 week prior to surgical procedure. Zepbound 2.5 mg/0.5 mL pen injector 2.5 mg subcut WEEKLY Qty: 2 0RF Rx Instructions: for 4 weeks Follow-up/Referrals: Alexia Lay MD [Primary Care Provider] -
[2024-09-11] MEDS: AMOXICILLIN/CLAVULANATE K 875-125 MG TAB 1 TABLET PO (09:02)
[2024-09-11 09:03] LABS: Add Urine Microscopic? YES; Appearance Urine Clear (Clear); Bacteria Urine None Seen /hpf; Bilirubin Urine Negative (Negative); Blood Urine Negative (Negative); Color Urine Yellow (Yellow); Glucose Urine UA Negative (Negative); Ketones Urine Negative (Negative); Leukocyte Esterase Ur Trace LEU/UL (Negative); Nitrate Urine Negative (Negative); Non Pathogenic Casts 0-2; Protein Urine Negative (Negative); RBC Urine 0-2 /hpf (0-2); Specific Grav Ur 1.029 (1.001-1.035); Squamous Epithelial Cell Urine None Seen /hpf (Few); Urobilinogen Urine 0.2 mg/dL (<2.0); WBC Urine 0-5 /hpf (0-3)
[2024-09-11] MEDS: DOXYCYCLINE HYCLATE 50 MG CAPSULE PO ×2 (09:43→10:10)
== END 2024-09-11 10:16 | disposition home or self-care (01) ==
PROVIDERS: Emergency Provider Emergency Medicine; PCP Family Medicine
DX: J18.9 Pneumonia, unspecified organism (principal); Z20.822 Contact with and (suspected) exposure to COVID-19; E78.2 Mixed hyperlipidemia; I10 Essential (primary) hypertension; K21.9 Gastro-esophageal reflux disease without esophagitis; M17.10 Unilateral primary osteoarthritis, unspecified knee; Z90.49 Acquired absence of other specified parts of digestive tract; Z79.85 Long-term (current) use of injectable non-insulin antidiabetic drugs; Z79.899 Other long term (current) drug therapy
CPT/HCPCS: 36415; 71045; 71275; 80053; 81001; 81025; 83690; 84484; 85025; 87637; 93005; 96361; 96374; 96375; 99284; A9270; J7030; Q9967

== ENCOUNTER 2024-11-17 08:00 | Outpatient (RCR) | payer OTHER, SELFPAY ==
--- NOTE | 2024-10-02 15:02 | OPREHPOC ---
Outpatient Therapy Plan of Care This is a Multidisciplinary Plan of Care that may contain components documented by all disciplines (PT, OT, and ST.) PT Problem 1 PT Problem #1 Knowledge Deficit PT Goal 1 Goal / Goal Update *indep with HEP * correct body mechanics with lifting from floor Target Visit 8 PT Goal 2 Goal / Goal Update * pt voice correct work station set up Target Visit 8 PT Problem 2 PT Problem #2 Pain PT Goal 1 Goal / Goal Update * pt report pain rating at worst of L knee 3/10 Target Visit 8 PT Goal 2 Goal / Goal Update * pt report pain rating at worst of back 3/10 Target Visit 8 PT Problem 3 PT Problem #3 Impaired Flexibility PT Goal 1 Goal / Goal Update increase flexibility of L hip/knee, s/p surgery 1* supine SLR/hamstring 75' 2* prone knee flexion 115' 3* side lying ITB stretch without report pain Target Visit 8 PT Problem 4 PT Problem #4 Impaired Strength PT Goal 1 Goal / Goal Update increase strength of trunk and L LE, to improve stability to knee and back: * single leg standing 15 seconds with good stability Target Visit 8
--- NOTE | 2024-10-02 15:02 | PTOPEVAL1 ---
Assessment and note entered by Katlin Lara, PT Evaluation Information Assessment Status Evaluation ICD-10 Condition Codes (PT) Pain in low back M54.50,Pain in left knee M25.562, Encounter for other orthopedic aftercare Z47.89 Other ICD-10 Condition Codes ( OA R knee M17.11 PT) Onset 09-02-24 Subjective Information L knee arthroscopy on 09-02-24; after surgery, having more pain in back and L thigh numb; had pneumonia after surgery; have been doing the knee exercises from the dr office/ handout: hamstring isometric, prone quad with roll under knee, SLR, glut set, standing SLR, small squat, quad stretch, single leg knee bend; step ups; sitting hamstring stretch; no longer using assistive device for walking; saw primary dr, Dr Lay for LBP; have not had imaging for back; have history of chronic back pain; have never had PT for her back; 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 Reported Pain Level Pain Score Self Report Additional Pain Score Comments L knee pain range in the past week 1-6/10; numbness over thigh; medial knee painful, thigh and knee tight increase pain: walking/standing 20 minutes, rolling over in bed decrease pain: lidocaine, ibuprofen have not used ice/elevation --used initially sleeping: usually OK and not awaken due to pain, sometimes change positions hurts both knees BACK: pain range 0-5/10; L > R increase pain: more activity, lifting, yard work decrease pain: rest, over the counter meds, heat Assessment PT Clinical Summary Barbra has the diagnosis of L knee pain, s/p arthroscopy, LBP and R knee OA. Her history includes chronic back pain and increased back pain since knee surgery. Self assessment LE functional scale rating of 38% limitation in activity level. She has decreased activity level due to knee surgery and back pain--has not resumed her walking for fitness or outside tasks. Her job involves computer work--with sit/stand computer station. With the evaluation: L knee with slight decrease in flexibility of knee flexion, hamstring and anterior hip/quad length; with palpation, tenderness over mid to distal L ITB--jumped with light pressure; standing posture with increase lumbar lordosis; slight decrease in strength of L hip and knee. Discussed with pt doing the exercises on her R LE also and monitor R knee pain with activity. Skilled PT services are indicated for modalities to decrease back, knee and ITB pain; therapeutic exercises to increase flexibility and strength over trunk, L hip and knee, to improve back posture and positioning, with education for body mechanics and HEP. Plan of Care Interventions Electrical Stimulation,Hot Pack/Cold Pack,Manual Therapy,Neuro Re-education,Patient/Caregiver Education,Therapeutic Activities,Therapeutic Exercise,Ultrasound,Other Other Interventions taping PT Services Indicated Yes Treatment Frequency and 1-2x/wk for 8 visits Duration These treatments will address the objective and functional deficits as defined above. The patient will be advanced safely and appropriately in order for the patient to progress towards his/her prior level of function. Additional exercises will be introduced and as well as a comprehensive home exercise program upon discharge, if needed, ?to ensure carryover of functional gains achieved in the clinic. This treatment plan has been reviewed and agreement upon by the patient.
--- NOTE | 2024-11-17 08:50 | OPREHPOC ---
Outpatient Therapy Plan of Care This is a Multidisciplinary Plan of Care that may contain components documented by all disciplines (PT, OT, and ST.) PT Problem 1 PT Problem #1 Knowledge Deficit PT Goal 1 Goal / Goal Update *indep with HEP * correct body mechanics with lifting from floor -25 d/c goals met Target Visit 8 Progress Met PT Goal 2 Goal / Goal Update * pt voice correct work station set up 25 d/c goal met Target Visit 8 Progress Met PT Problem 2 PT Problem #2 Pain PT Goal 1 Goal / Goal Update * pt report pain rating at worst of L knee / 25 d/c goal met Target Visit 8 Progress Met PT Goal 2 Goal / Goal Update * pt report pain rating at worst of back / 25 d/c goal met Target Visit 8 Progress Met PT Problem 3 PT Problem #3 Impaired Flexibility PT Goal 1 Goal / Goal Update increase flexibility of L hip/knee, s/p surgery 1* supine SLR/hamstring 75' 2* prone knee flexion 115' 3* side lying ITB stretch without report pain -25 d/c goals met Target Visit 8 Progress Met PT Problem 4 PT Problem #4 Impaired Strength PT Goal 1 Goal / Goal Update increase strength of trunk and L LE, to improve stability to knee and back: * single leg standing 15 seconds with good stability 25 d/c goal not met Target Visit 8 Progress Not Met
--- NOTE | 2024-11-17 08:50 | PTOPDC ---
Assessment and note entered by Katlin Lara, PT Assessment Status Discharge ICD-10 Condition Codes (PT) Pain in low back M54.50,Pain in left knee M25.562, Encounter for other orthopedic aftercare Z47.89 Other ICD-10 Condition Codes ( OA R knee M17.11 PT) Onset 09-02-24 Subjective Information knee is better; some discomfort with stretching my knee; saw neurologist and was only for meds; going to specialist for neuropathy; was able to push mow the yard over the weekend without any pain; Reported Pain Level Pain Score Self Report Additional Pain Score Comments pain range of knee in the past week 0-2/10: increase after walking ~ 1 hour and 15 minutes pain range in the back in the past week-- 0/10 some back pain with overdoing it- lifting and more activity; some knee pain with sleeping-- over medial knee; have neuropathy in legs Assessment PT Clinical Summary Barbra has received 8 PT sessions. Improved and today presents with: pain rating of L knee 0-2/10 and back- no pain in the past week; self assessment LE functional scale rating of 26% limitation in activity level; increase flexibility of L hamstrings, ITB and anterior hip/quad muscles; increase strength of trunk, hips and knees; education completed for body mechanics, posture and HEP. The goals were achieved except single leg standing. Discharge PT. She is to continue with her HEP and monitor activity level to manage pain. Plan of Care PT Services Indicated No
== END 2024-11-17 11:04 | disposition home or self-care (01) ==
LOC: ANHPT 08:00
PROVIDERS: PCP Family Medicine; Visit Provider Orthopaedic Surgery
DX: M17.11 Unilateral primary osteoarthritis, right knee (principal); M54.50 Low back pain, unspecified; S83.232A Complex tear of medial meniscus, current injury, left knee, initial encounter; G57.12 Meralgia paresthetica, left lower limb; Z98.890 Other specified postprocedural states
CPT/HCPCS: 97110; 97116; 97162; 97530

== ENCOUNTER 2025-06-08 07:03 | Outpatient (CLI) | payer OTHER, SELFPAY ==
--- NOTE | ~2025-06-08 | MR_ITS ---
EXAMINATION: MR knee RT wo con DATE: 06/08/2025 07:52 INDICATION: Right knee pain TECHNIQUE: Magnetic resonance imaging (MRI) of the affected knee was performed without intravenous contrast. Sequences included coronal PD-weighted FSE, coronal PD-weighted FS FSE, sagittal T2-weighted FSE, sagittal PD-weighted FS FSE and axial PD weighted fat saturated FSE. COMPARISON: None. FINDINGS: Medial compartment: Mild medial extrusion of the medial meniscal body. Partial-thickness radial tear involving the inner third to one half of the posterior horn best appreciated on axial series 3, image 21 and coronal series 4 & 5 on image 17. Likely small partial-thickness chondral fissure at the junction of the anterior to central weightbearing medial femoral condyle. Additional deeper chondral fissuring along the posterior weightbearing medial femoral condyle with single small focus of mild subarticular edema-like signal change. Normal cartilage along the medial tibial plateau. Lateral compartment: Lateral meniscus is normal. Articular cartilage is normal. Patellofemoral compartment: Articular cartilage is normal. Ligaments and tendons: Anterior and posterior cruciate ligaments are normal. The medial collateral ligament and fibular collateral ligament complex are normal. The extensor mechanism is normal. The visualized medial and lateral hamstring tendons as well as the iliotibial band are normal. Fluid: Physiologic amount of fluid in the joint space. No loose osteochondral bodies identified. Osseous/other: No fracture or pathologic marrow replacing process. IMPRESSION: 1. Partial-thickness radial tear at the posterior horn of the medial meniscus. 2. Mild osteoarthritis with small regions of moderate and high-grade chondromalacia along the weightbearing medial femoral condyle. Reviewed, dictated and finalized at location A. 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 Partial-thickness radial tear at the posterior horn of the medial meniscus. 2. Mild osteoarthritis with small regions of moderate and high-grade chondromal acia along the weightbearing medial femoral condyle.
== END 2025-06-08 07:04 | disposition home or self-care (01) ==
PROVIDERS: PCP Orthopaedic Surgery; Visit Provider Orthopaedic Surgery
DX: S83.241A Other tear of medial meniscus, current injury, right knee, initial encounter (principal); M17.11 Unilateral primary osteoarthritis, right knee; M94.261 Chondromalacia, right knee; X58.XXXA Exposure to other specified factors, initial encounter
CPT/HCPCS: 73721

== ENCOUNTER 2025-06-29 07:12 | Outpatient (CLI) | payer OTHER, SELFPAY ==
--- NOTE | ~2025-06-29 | MM_ITS ---
EXAMINATION: MM screening beckie BI w macy HISTORY: Screening TECHNIQUE: Craniocaudal and mediolateral oblique 3-D tomosynthesis images were obtained and synthetic 2-D images were generated. CAD analysis was submitted and interpreted. COMPARISON: Comparison to multiple prior studies sequentially, with oldest reviewed study dated , 07/04/2021 BREAST PARENCHYMAL COMPOSITION: Not Dense: There are scattered areas of fibroglandular density. FINDINGS: There is no evidence of suspicious mass, calcification, or architectural distortion to suggest malignancy in either breast. IMPRESSION: 1. No mammographic evidence of malignancy. 2. Recommend routine screening mammography in one year. BI-RADS Category 1: Negative Reviewed, dictated and finalized at location B. 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
== END 2025-06-29 07:13 | disposition home or self-care (01) ==
LOC: MICIMG 07:13
PROVIDERS: PCP Student in an Organized Health Care Education/Training Program; Visit Provider Nurse Practitioner
DX: Z12.31 Encounter for screening mammogram for malignant neoplasm of breast (principal)
CPT/HCPCS: 77063; 77067